=== PATIENT | female | born 1995 | race Caucasian/White ===

== ENCOUNTER 2017-01-22 14:08 | Emergency (ER) | payer BC ==
[2017-01-22] MEDS ORDERED: NS 0.9% 1000 ML* 1,000 ML IV ONE (15:06)
[2017-01-22] MEDS ORDERED: Metoclopramide IV* 5 MG/ML 2 ML VIAL IV ONE (15:06)
[2017-01-22] MEDS ORDERED: LORazepam INJ* 2 MG/ML 1 ML VIAL IV ONE (15:06)
[2017-01-22] MEDS ORDERED: Ketorolac INJ* 30 MG/ML 1 ML VIAL IV ONE (15:06)
[2017-01-22 15:23] LABS: Hematocrit 41 % (35-47); Hemoglobin 13.3 g/dl (12.0-16.0); Mean Corpuscular HGB Conc 33 g/dl (31-36); Mean Corpuscular Hemoglobin 28 pg (27-31); Mean Corpuscular Volume 87 fL (80-97); Mean Platelet Volume 8 um3 (7.4-10.4); Red Blood Count 4.68 10^6/ul (4.0-5.4); Red Cell Distribution Width 13 % (10.5-15); White Blood Count 14.8 10^3/ul (3.5-10.8)
--- NOTE | 2017-01-22 15:27 | ED ---
Abdominal Pain/Female - HPI Summary HPI Summary: Patient presents with vomiting and epigastric pain since this AM. She has a history of the same periodically for the past 4 years. She has been evaluated by her PCP and self-referred to GI where she has already undergone an upper endoscopy, ultrasound and gastric emptying study for gastroparesis without findings. She is awaiting a repeat upper GI study, a lower study and a colonoscopy as well. She has not been able to relate her symptoms to any particular trigger, food, medication or activity. She denies fever, chills, CP, SOB, urinary or bowel symptoms. Her symptoms typically present with a sensation of "heaviness" in her stomach, which triggers anxiety in her because she doesn' t want to vomit, which then can exacerbate her feelings of nausea. She can not relate todays episode with any events. Each episode usually last approximately 8 -9 hours and the only thing that seems to ease the symptoms away is marijuana, but only once the feelings have already begun to wane. - History of Current Complaint Chief Complaint: Tami Stated Complaint: ABD PAIN/VOMITING Time Seen by Provider: 01/22/17 14:37 Hx Obtained From: Patient, Family/Pipe Organ Builder ?: No Onset/Duration: Gradual Onset, Lasting Hours Timing: Constant Severity Initially: Severe Severity Currently: Severe Pain Intensity: 6 Location: Epigastric Radiates: No Character: Sharp, Burning Aggravating Factor(s): Movement Alleviating Factor(s): Nothing Associated Signs and Symptoms: Positive: Nausea, Vomiting Allergies/Adverse Reactions: Allergies Allergy/AdvReac Type Severity Reaction Status Date / Time No Known Allergies Allergy Verified 06/06/15 22:22 PMH/Surg Hx/FS Hx/Imm Hx Psychiatric History: Reports: Hx Anxiety Infectious Disease History: No Infectious Disease History: Denies: Traveled Outside the [place] in Last 30 Days - Family History Known Family History: Positive: None - Social History Occupation: Employed Full-time Lives: With Family Alcohol Use: Occasionally Substance Use Type: Reports: Marijuana Smoking Status (MU): Never Smoked Tobacco Review of Systems Negative: Fever, Chills, Fatigue Negative: Chest Pain Negative: Shortness Of Breath Positive: Abdominal Pain, Vomiting, Nausea. Negative: Diarrhea Negative: Bruising Negative: Weakness, Paresthesia, Numbness Positive: Anxious All Other Systems Reviewed And Are Negative: Yes Physical Exam - Summary Physical Exam Summary: Patient is visibly upset, crying, and shaking with anxiety. As we begin to talk , she appears to calm with decreased crying and shaking. Triage Information Reviewed: Yes Vital Signs On Initial Exam: Initial Vitals Temp Pulse Resp BP Pulse Ox 98.4 F 94 20 139/98 100 01/22/17 14:10 01/22/17 14:10 01/22/17 14:10 01/22/17 14:10 01/22/17 14:10 Vital Signs Reviewed: Yes Appearance: Positive: Well-Appearing, Pain Distress, Thin Skin: Positive: Warm, Skin Color Reflects Adequate Perfusion, Dry, Soft Head/Face: Positive: Normal Head/Face Inspection Eyes: Positive: EOMI, BENIGNO, Conjunctiva Clear ENT: Positive: Hearing grossly normal, Pharynx normal Neck: Positive: Supple, Nontender, No Lymphadenopathy Respiratory/Lung Sounds: Positive: Clear to Auscultation, Breath Sounds Present Cardiovascular: Positive: RRR Abdomen Description: Positive: Soft. Negative: Nontender - mild TTP epigastric region, CVA Tenderness (R), CVA Tenderness (L), Distended, Guarding Bowel Sounds: Positive: Present Musculoskeletal: Negative: Edema Left, Edema Right Neurological: Positive: Sensory/Motor Intact, Alert, Oriented to Person Place, Time, NV Bundle Intact Distally, Normal Gait Psychiatric: Positive: Anxious AVPU Assessment: Alert Diagnostics - Vital Signs Vital Signs Temp Pulse Resp BP Pulse Ox 01/22/17 15:19 20 01/22/17 14:10 98.4 F 94 20 139/98 100 - Laboratory Result Diagrams: 01/22/17 14:38 01/22/17 14:38 Lab Statement: Any lab studies that have been ordered have been reviewed, and results considered in the medical decision making process. Re-Evaluation - Re-Evaluation First Eval Re-Evaluation Time: 16:45 Change: Improved Comment: Patient greatly improved. Abdominal Pain Fem Course/Dx - Course Course Of Treatment: The patient's presentation and history are consistent with cyclical vomiting syndrome. She will be referred back to her GI and PCP for follow-up care and evaluation. She was provided education material regarding her diagnosis. - Diagnoses Differential Diagnosis: Positive: Bowel Obstruction, Constipation, Gall Bladder Disease, Hepatitis, , Renal Colic, Urinary Tract Infection Provider Diagnoses: Cyclical vomiting Discharge - Discharge Plan Condition: Stable Disposition: HOME Prescriptions: Lorazepam [Ativan 1 MG TAB] 1 mg PO TID PRN #15 tab MDD 3 PRN Reason: Anxiety Referrals: Bell Valle MD [Primary Care Provider] - Additional Instructions: Please use the medication prescribed as needed and follow-up with your primary care provider's office and your GI doctor. Return to the emergency department if symptoms worsen.
[2017-01-22 15:35] LABS: ALT 15 U/L (7-52); AST 17 U/L (13-39); Albumin 4.4 g/dL (3.2-5.2); Alkaline Phosphatase 30 U/L (34-104); Anion Gap 10 mmol/L (2-11); BUN/Creatinine Ratio 14.7 (8-20); Blood Urea Nitrogen 11 mg/dL (6-24); C Reactive Protein 2.11 mg/L (< 5.00); CO2 Carbon Dioxide 21 mmol/L (22-32); Calcium 9.8 mg/dL (8.6-10.3); Chloride 104 mmol/L (101-111); EGFR African American 124.3 (>60); EGFR Non-African American 96.6 (>60); Globulin 3.5 g/dL (2-4); Glucose 101 mg/dL (70-100); Potassium 3.4 mmol/L (3.5-5.0); Sodium 135 mmol/L (133-145); Total Protein 7.9 g/dL (6.4-8.9)
[2017-01-22 17:17] VITALS: BP 123/71
== END 2017-01-22 17:17 | disposition home or self-care (01) ==
LOC: ED 14:08
DX: R11.2 Nausea with vomiting, unspecified (principal); R10.13 Epigastric pain
CPT/HCPCS: 36415; 80053; 84702; 85025; 86140; 96374; 96375; 99282; J1885; J2060; J2765